=== PATIENT | male | born 1980 | race Caucasian/White ===

== ENCOUNTER 2019-06-18 06:29 | Outpatient (CLI) | payer OTHER ==
[2019-06-18 16:55] LABS: #Basophils 0.1 thou/uL (0.0-0.2); #Eosinphils 0.3 thou/uL (0.0-0.7); #Lymphocytes 1.9 thou/uL (1.20-3.40); #Monocytes 0.6 thou/uL (0.11-0.59); #Neutrophils 7.8 thou/uL (1.40-6.50); %Basophils 1.2 % (0.0-1.0); %Eosinophils 2.6 % (0.0-10.0); %Lymphocytes 17.9 % (21.0-51.0); %Monocytes 5.8 % (0.0-10.0); %Neutrophils 72.6 % (42.0-75.0); Hemoglobin 17.4 g/dL (14.0-18.0); Mean Corpuscular HGB CONC 33.4 g/dL (32.0-36.0); Mean Platelet Volume 7.2 fL (7.4-10.4); Platelet Count 178 thou/uL (130-400); RBC Distribution Width 12.6 % (11.5-14.5); Red Blood Cell (RBC) Count 5.13 mill/uL (4.70-6.10); White Blood Cell (WBC) Count 10.8 thou/uL (4.8-10.8)
[2019-06-18 17:17] LABS: Anion Gap 17 mmol/L (10-20); BUN (Urea Nitrogen) 7 mg/dL (8.9-20.6); Calc. Creatinine Clearance 0 mL/min (70-130); Calcium 9.7 mg/dL (7.8-10.44); Carbon Dioxide 21 mmol/L (22-29); Chloride 101 mmol/L (98-107); Estimated GFR-MDRD Greater than 90; Glucose 144 mg/dL (70-105); Potassium 4.1 mmol/L (3.5-5.1); Sodium 135 mmol/L (136-145)
[2019-06-19 11:52] LABS: SARS-CoV-2 MS2 Positive; SARS-CoV-2 N Gene Negative; SARS-CoV-2 S Gene Negative; SARS-CoV-2 orf1ab Negative
--- NOTE | 2019-06-19 17:34 | EKG ---
Test Reason : Blood Pressure : / mmHG Vent. Rate : 097 BPM Atrial Rate : 097 BPM P-R Int : 160 ms QRS Dur : 086 ms QT Int : 342 ms P-R-T Axes : 047 072 -19 degrees QTc Int : 434 ms Normal sinus rhythm Cannot rule out Anterior infarct , age undetermined T-wave inversion in in inf-lat leads R/O ischemia Abnormal ECG No previous ECGs available Confirmed by LOIS PRICE, SLj ([id number]) on 06/19/2019 5:34:10 PM Referred By: IERO Confirmed By:DR. Sanket ABREU MD
== END 2019-06-18 06:30 | disposition home or self-care (01) ==
LOC: LABBT 06:29
PROVIDERS: ATTEND Orthopaedic Surgery
DX: Z01.818 Encounter for other preprocedural examination (principal); Z11.59 Encounter for screening for other viral diseases; S83.207A Unspecified tear of unspecified meniscus, current injury, left knee, initial encounter
CPT/HCPCS: 80048; 85025; 87635; 93005; 93010; U0003

== ENCOUNTER 2019-06-20 05:44 | Day surgery (SDC) | payer OTHER ==
[2019-06-20] MEDS ORDERED: PROPOFOL 20 ML ONE (06:51)
[2019-06-20] MEDS ORDERED: Fentanyl 100 MCG/2 ML VIAL ONE (07:02)
[2019-06-20] MEDS ORDERED: Midazolam HCl 2 mg/2 ml Vial ONE (07:02)
[2019-06-20] MEDS ORDERED: Ondansetron PF 4 MG/2 ML Vial ONE (08:32)
--- NOTE | 2019-06-20 09:08 | OP ---
DATE OF PROCEDURE: 06/20/2019 PREOPERATIVE DIAGNOSIS: Left knee medial meniscus repair, posterior horn. POSTOPERATIVE DIAGNOSIS: Left knee medial meniscus repair, posterior horn. PROCEDURES PERFORMED: Left knee arthroscopy with partial medial meniscectomy. TANK TRUCK OPERATOR: None. ESTIMATED BLOOD LOSS: Minimal. COMPLICATIONS: None. ANESTHESIA: He had general anesthetic. He also had a local knee block. DISPOSITION: He went to recovery room in stable condition. INDICATIONS: This 38-year-old male had worker's compensation injury that caused him to have a PCL injury as well as medial meniscus tear. At this time, he is coming in for treatment of the medial meniscus tear. He has failed nonoperative treatment. DESCRIPTION OF PROCEDURE: After all appropriate consent forms were explained and signed, he was taken to the operative room and at this time was given general anesthetic. Once the level of anesthesia was appropriate, tourniquet was placed on the left thigh. Leg was placed in arthroscopic leg taylor. The limb was then prepped and draped in standard surgical fashion. The limb was exsanguinated and the tourniquet was taken up to 300 mmHg. Inferolateral portal was established. Scope was placed into the knee joint. A needle localization technique was then used to make a medial working portal. Diagnostic arthroscopy commenced in the notch, the ACL and PCL were evaluated. The ACL was intact. The PCL on its insertion site overall looked pretty good by direct visualization at this time. Medial compartment showed him to have a partial-thickness condyle lesion on his medial femoral condyle. This was 1.5 cm in diameter. There was no exposed bone. There was no significant chondral flaps. So, there was no treatment needed. Medial tibial plateau was in good condition. Medial meniscus was probed on the superior and inferior surface, found to have a flap-type tear in the posterior horn and a partial meniscectomy was performed with meniscal biter and shaver. Once this was done, the lateral compartment was evaluated and this was found to be intact, both the articular surfaces as well as the lateral meniscus. Gutters were swept through, no loose bodies were noted. Patellofemoral joint was in good condition as well. Scope was removed. Knee was drained. Portals were closed with simple nylon stitch. Bulky sterile dressing was applied. Tourniquet was let down. Toes pinked up nicely. The patient was then awakened and he was taken to recovery room in stable condition. All counts were correct at the end of the case. He received preoperative IV antibiotics. Job ID: [id number]
[2019-06-20] MEDS ORDERED: Ketorolac Tromethamine 30 MG/ML VIAL ONE (12:03)
[2019-06-20] MEDS ORDERED: Bupivacaine HCl 0.5%/Epinephrine 1:200,000/PF 30 ml Vial ONE (12:03)
[2019-06-20] MEDS ORDERED: Lidocaine 2% w/Epinephrine 1:200K 20 ML VIAL ONE (12:03)
[2019-06-20] MEDS ORDERED: PROPOFOL 200 MG/20 ML VIAL ONE (12:03)
[2019-06-20] MEDS ORDERED: Lidocaine 1% PF 5 ML VIAL ONE (12:03)
== END 2019-06-20 09:55 | disposition home or self-care (01) ==
LOC: SDC 05:44
PROVIDERS: ATTEND Orthopaedic Surgery
PROC: 0SBD4ZZ Excision of Left Knee Joint, Percutaneous Endoscopic Approach (ICD-10-PCS; principal; 2019-06-20)
DX: S83.242A Other tear of medial meniscus, current injury, left knee, initial encounter (principal); K21.9 Gastro-esophageal reflux disease without esophagitis; K50.90 Crohn's disease, unspecified, without complications; I10 Essential (primary) hypertension; F17.210 Nicotine dependence, cigarettes, uncomplicated; Z88.5 Allergy status to narcotic agent
CPT/HCPCS: J0670; J0690; J1885; J2001; J2250; J2405; J2704; J3010